=== PATIENT | male | born 1975 | race Caucasian/White ===

== ENCOUNTER 2025-02-04 11:56 | Emergency (ER) | payer MEDICAID ==
[~2025-02-04] VITALS: Ht 154.9 cm; Wt 60.0 kg
[2025-02-04 12:08] VITALS: O2SAT 100
[2025-02-04 12:54] LABS: CLARITY URINE CLEAR (CLEAR); COLOR URINE YELLOW (YELLOW); GLUCOSE URINE 3+ (NEGATIVE); KETONES URINE 2+ (NEGATIVE); LEUKOCYTE ESTERASE URINE NEGATIVE (NEGATIVE); NITRITE URINE NEGATIVE (NEGATIVE); OCCULT BLOOD URINE NEGATIVE (NEGATIVE); PH URINE 5.5 (4.5-8.0); PROTEIN URINE NEGATIVE (NEGATIVE); SPECIFIC GRAVITY URINE 1.041 (1.005-1.030); UROBILINOGEN URINE 0.2 E.U./dL (0.2-1.0)
[2025-02-04 13:15] LABS: BASOPHILS % 0.1 % (0.0-2.0); EOSINOPHILS % 1.3 % (0.0-5.0); HEMATOCRIT. 49.4 % (42.0-52.0); HEMOGLOBIN. 16.7 g/dL (14.0-18.0); LYMPHOCYTES % 26.8 % (20.0-50.0); MEAN PLATELET VOLUME 7.9 fl (7.4-10.4); MONOCYTES % 7.0 % (2.0-8.0); NEUTROPHILS % 64.8 % (40.0-76.0); PLATELET 312 x1000/uL (130-400); RED BLOOD CELL COUNT 5.31 mill/uL (4.7-6.1); RED CELL DISTRIBUTION WIDTH 12.4 % (11.6-14.6)
[2025-02-04 13:17] LABS: BACTERIA URINE NONE SEEN; RBC URINE NONE SEEN /hpf (0-2); SQUAMOUS EPITHELIAL CELL URINE NONE SEEN /lpf (RARE/1+); WBC URINE 0-2 /hpf (0-2)
[2025-02-04 13:31] LABS: CREATININE 1.1 mg/dL (0.6-1.3); UREA NITROGEN BLOOD 14 mg/dL (9-23)
[2025-02-04 13:33] LABS: ASPARTATE AMINOTRANSFERASE 18 IU/L (<34); BILIRUBIN DIRECT 0.1 mg/dL (<=3.0); BILIRUBIN TOTAL 0.7 mg/dL (0.1-1.0)
[2025-02-04 13:34] LABS: PROTEIN TOTAL 8.1 g/dL (6.0-8.3)
[2025-02-04] MEDS: ONDANSETRON 4MG ODT PO ONE (14:23)
[2025-02-04] MEDS: FAMOTIDINE 20MG TABLET PO ONE (14:24)
[2025-02-04] MEDS: MAGNESIUM/ALUMINUM HYDROXIDE/SIMETHICONE 30ML UDC PO ONE (14:24)
[2025-02-04] MEDS ORDERED: MAG-55 MT (14:39)
[2025-02-04] MEDS ORDERED: FAMO-135 MT (14:39)
[2025-02-04] MEDS ORDERED: METF-414 MT (14:39)
[2025-02-04 15:13] VITALS: BP 129/90; PULSE 79; RESP 18; TEMP 36.9; O2SAT 99
== END 2025-02-04 15:13 | disposition home or self-care (01) ==
LOC: ER 11:56
DX: K29.70 Gastritis, unspecified, without bleeding (principal); E11.65 Type 2 diabetes mellitus with hyperglycemia
CPT/HCPCS: 80076; 80048; 81003; 82962; 83690; 85025; 36415; 99284; Q0162; Z7610 ×2; A4606

== ENCOUNTER 2025-05-25 18:06 | Emergency (ER) | payer SELFPAY ==
[~2025-05-25] VITALS: Ht 167.6 cm; Wt 68.0 kg
[~2025-05-25 18:06] MED LIST: FAMO-135 MT; MAG-55 MT; METF-414 MT
[2025-05-25 18:16] VITALS: O2SAT 100
[2025-05-25 21:15] LABS: BASOPHILS % 0.4 % (0.0-2.0); EOSINOPHILS % 2.2 % (0.0-5.0); HEMATOCRIT. 42.7 % (42.0-52.0); HEMOGLOBIN. 14.6 g/dL (14.0-18.0); LYMPHOCYTES % 33.4 % (20.0-50.0); MEAN PLATELET VOLUME 7.7 fl (7.4-10.4); MONOCYTES % 6.8 % (2.0-8.0); NEUTROPHILS % 57.2 % (40.0-76.0); PLATELET 297 x1000/uL (130-400); RED BLOOD CELL COUNT 4.54 mill/uL (4.7-6.1); RED CELL DISTRIBUTION WIDTH 12.5 % (11.6-14.6)
[2025-05-25 21:24] LABS: CREATININE 0.7 mg/dL (0.6-1.3)
[2025-05-25 21:25] LABS: UREA NITROGEN BLOOD 12 mg/dL (9-23)
[2025-05-25] MEDS: SODIUM CHLORIDE 0.9% 1,000 ML IV ONE (21:33)
[2025-05-25] MEDS ORDERED: METF-414 MT (22:18)
[2025-05-25 22:36] VITALS: BP 4/87; PULSE 75; RESP 18; TEMP 36.9; O2SAT 98
== END 2025-05-25 22:37 | disposition home or self-care (01) ==
LOC: ER 18:06
DX: E11.65 Type 2 diabetes mellitus with hyperglycemia (principal); Z79.84 Long term (current) use of oral hypoglycemic drugs; Z79.899 Other long term (current) drug therapy
CPT/HCPCS: 80048; 82962; 85025; 36415; 96360; 99283; J7030; Z7610 ×2; A6449